=== PATIENT | male | born 1955 | race Caucasian/White ===

== ENCOUNTER 2024-11-30 02:55 | Emergency (ER) | payer OTHER ==
[2024-11-30] MEDS ORDERED: Lidocaine 2% 5 ML SDV INFILT ONE (02:56)
[2024-11-30] MEDS: Diphtheria,Pertussis(Acell),Tetanus Vaccine 0.5 ML Syringe IM ONE (05:16)
[2024-11-30] MEDS: Cephalexin 500 MG Cap PO ONE (05:23)
== END 2024-11-30 05:30 | disposition home or self-care (01) ==
LOC: FB.ED 02:55
DX: S61.011A Laceration without foreign body of right thumb without damage to nail, initial encounter (principal); Z91.018 Allergy to other foods; Z79.899 Other long term (current) drug therapy; W23.1XXA Caught, crushed, jammed, or pinched between stationary objects, initial encounter; Z23 Encounter for immunization
CPT/HCPCS: 12001; 36415; 73140; 80320; 90471; 90715; 99000; 99283; A9270; J2003; G0480